=== PATIENT | male | born 1945 | race Hispanic/Latino ===

== ENCOUNTER 2024-07-05 17:33 | Emergency (ER) | payer OTHER ==
[~2024-07-05] VITALS: Ht 172.7 cm; Wt 85.7 kg
[2024-07-05 18:37] LABS: BASOPHILS # (AUTO) 0.05 K/uL (0.00-0.20); BASOPHILS % (AUTO) 0.7 % (0.0-5.0); EOSINOPHILS # (AUTO) 0.09 K/uL (0.00-0.70); EOSINOPHILS % (AUTO) 1.3 % (0.0-8.0); HEMATOCRIT 42.9 % (42-54); IMMATURE GRANULOCYTE ABSOLUTE 0.03 K/uL (0-1); LYMPHOCYTES # (AUTO) 1.9 K/uL (1.0-4.8); LYMPHOCYTES % (AUTO) 26.6 % (21.0-51.0); MEAN CORPUSCULAR HEMOGLOBIN 30.3 pg (27.0-33.0); MEAN CORPUSCULAR HGB CONC 33.6 g/dL (32.0-36.0); MEAN CORPUSCULAR VOLUME 90.3 fL (79-99); MONOCYTES # (AUTO) 0.5 K/uL (0.1-1.0); MONOCYTES % (AUTO) 7.4 % (3.0-13.0); NEUTROPHILS # (AUTO) 4.6 K/uL (1.8-7.7); NEUTROPHILS % (AUTO) 63.6 % (40.0-77.0); PLATELET COUNT (AUTO) 202 K/uL (130-400); RED BLOOD CELL COUNT(AUTO) 4.75 MIL/uL (4.50-6.20); RED CELL DISTRIBUTION WIDTH 12.3 % (11.0-15.5); WHITE BLOOD COUNT (AUTO) 7.2 K/uL (4.8-10.8)
[2024-07-05 18:47] LABS: CREATININE 1.1 mg/dL (0.5-1.3); POTASSIUM 4.4 mmol/L (3.5-5.1)
[2024-07-05 19:05] LABS: APPEARANCE,URINE CLEAR (CLEAR); BILIRUBIN,URINE NEGATIVE (NEGATIVE); COLOR,URINE COLORLESS (YELLOW); GLUCOSE, URINE (UA) NEGATIVE (NEGATIVE); KETONES,URINE NEGATIVE (NEGATIVE); LEUKOCYTE ESTERASE ,URINE NEGATIVE Leu/uL (NEGATIVE); NITRATE,URINE NEGATIVE (NEGATIVE); OCCULT BLOOD,URINE NEGATIVE (NEGATIVE); PROTEIN,URINE NEGATIVE (NEGATIVE); UROBILINOGEN,URINE 0.2 mg/dL (0.2-1.0)
[2024-07-05 19:06] LABS: ADD UA MICROSCOPIC YES
[2024-07-05 19:07] LABS: RBC,URINE 0-1 /HPF (0-1); WBC,URINE 0-1 /HPF (0-1)
[2024-07-05 19:26] VITALS: BP 116/65; PULSE 49; RESP 18; TEMP 97.5; O2SAT 98
== END 2024-07-05 19:32 | disposition home or self-care (01) ==
LOC: EDBD 17:33 → EDH 17:33
DX: E11.649 Type 2 diabetes mellitus with hypoglycemia without coma (principal); E78.00 Pure hypercholesterolemia, unspecified; F41.9 Anxiety disorder, unspecified; I10 Essential (primary) hypertension; E87.8 Other disorders of electrolyte and fluid balance, not elsewhere classified; E87.1 Hypo-osmolality and hyponatremia; Z88.0 Allergy status to penicillin; Z95.1 Presence of aortocoronary bypass graft
CPT/HCPCS: 36415; 80048; 81001; 82948; 85025

== ENCOUNTER → 2024-07-17 | Outpatient (CLI) | payer OTHER | END | disposition home or self-care (01) | LOC: LAB 08:38 | PROVIDERS: ATTEND Internal Medicine Cardiovascular Disease | DX: G72.0 Drug-induced myopathy (principal) | CPT/HCPCS: 36415; 82550 ==

== ENCOUNTER 2024-08-22 11:43 | Observation (INO) | payer OTHER ==
[~2024-08-22] VITALS: Ht 172.7 cm; Wt 90.7 kg
[2024-08-22 12:13] LABS: BASOPHILS # (AUTO) 0.07 K/uL (0.00-0.20); BASOPHILS % (AUTO) 1.3 % (0.0-5.0); EOSINOPHILS # (AUTO) 0.39 K/uL (0.00-0.70); EOSINOPHILS % (AUTO) 7.1 % (0.0-8.0); HEMATOCRIT 44.5 % (42-54); IMMATURE GRANULOCYTE ABSOLUTE 0.03 K/uL (0-1); LYMPHOCYTES # (AUTO) 1.9 K/uL (1.0-4.8); LYMPHOCYTES % (AUTO) 34.8 % (21.0-51.0); MEAN CORPUSCULAR HEMOGLOBIN 29.8 pg (27.0-33.0); MEAN CORPUSCULAR HGB CONC 32.6 g/dL (32.0-36.0); MEAN CORPUSCULAR VOLUME 91.4 fL (79-99); MONOCYTES # (AUTO) 0.5 K/uL (0.1-1.0); MONOCYTES % (AUTO) 8.5 % (3.0-13.0); NEUTROPHILS # (AUTO) 2.6 K/uL (1.8-7.7); NEUTROPHILS % (AUTO) 47.8 % (40.0-77.0); PLATELET COUNT (AUTO) 172 K/uL (130-400); RED BLOOD CELL COUNT(AUTO) 4.87 MIL/uL (4.50-6.20); RED CELL DISTRIBUTION WIDTH 12.9 % (11.0-15.5); WHITE BLOOD COUNT (AUTO) 5.5 K/uL (4.8-10.8)
--- NOTE | 2024-08-22 12:21 | EKG ---
Test Date: 2024-08-22 Test Time: 12:20:39 Pat Name: JEYSON TOVAR Department: ED Room: Gender: M Category Director: [id number] : 1945 Requested By: ALEXA HUERTAS Order Number: [id number] Reading MD: Con Park Measurements Intervals [place] Rate: 55 P: 25 AL: 176 QRS: -63 QRSD: 161 T: 27 QT: 436 QTc: 418 Interpretive Statements Sinus rhythm RBBB and LAFB No previous ECG available for comparison Electronically Signed On 08-22-2024 14:32:53 SOCIAL SERVICE COORDINATOR by Con Park Please click the below link to view image of tracing.
[2024-08-22 12:25] LABS: CREATININE 1.1 mg/dL (0.5-1.3); INR 0.98 (0.85-1.15); POTASSIUM 4.3 mmol/L (3.5-5.1); PROTHROMBIN TIME 10.6 SEC (9.6-11.6)
[2024-08-22 12:26] LABS: PARTIAL THROMBOPLASTIN TIME 26.7 SEC (26.3-35.5)
[2024-08-22] MEDS: PANTOPrazole 40 MG/VIAL IVP ONE (12:30)
[2024-08-22] MEDS: CEFTRIAXONE 2GM VIAL IVPB ONE (12:30)
[2024-08-22 12:31] LABS: ALBUMIN 3.7 g/dL (3.5-5.0); BILIRUBIN,DIRECT 0.1 mg/dL (0.0-0.3); BILIRUBIN,TOTAL 0.5 mg/dL (0.2-1.0); TOTAL PROTEIN, SERUM 7.8 g/dL (6.0-8.3)
--- NOTE | 2024-08-22 12:32 | ERN ---
ED Note History of Present Illness Stated Complaint: RECTAL BLEED Chief Complaint: Rectal Bleed Dictation: 79-year-old male presents to the ED for evaluation of rectal bleed onset onset 2 days ago. Patient is reporting abdominal pain and dark stools, but denies any other associated symptoms at this time. Patient reports history of HTN, dm and remote CABG. Patient is currently taking aspirin. Allergies: Coded Allergies: Penicillins (Unverified Allergy, Unknown, 07/05/24) Past Medical History Past Medical History: Diabetes-Type II, High Cholesterol, Heart Disease, Hypertension Additional Past Medical Hx: BPH Surgical History: None Review of System Dictation Constitutional: Negative for fever,chills, and weight loss Eyes: Negative for injury, pain,redness, and discharge ENT: Negative for injury,pain or swelling Cardiovascular: Negative for chest pain, palpitations, and edema Respiratory: Negative for shortness of breath, cough, and wheezing, Abdomen/GI: Positive for abdominal pain, rectal bleed negative for nausea, vomiting, diarrhea, and constipation Back: Negative for injury and pain : Negative for injury, bleeding and discharge MS/Extremity: Negative for injury and deformity Skin: Negative for rash, and discoloration Neuro: Negative for headache, weakness, numbness, tingling, and seizure Psych: Negative for suicide ideation, homicidal ideation, and hallucinations Initial Vital Sign VS Vital Signs Date Time Temp Pulse Resp B/P (MAP) Pulse Ox O2 Delivery O2 Flow Rate FiO2 08/22/24 11:47 97.2 56 18 155/67 98 Room Air* 0 21 Physical Exam Dictation General: awake, alert, NAD Head/Face: Normocephalic, atraumatic Eyes: PERRL, EOMI, vision at baseline ENT: oral cavity clear, TMs clear, no signs of infection Neck: Trachea midline, supple, no nuchal rigidity Cardiovascular: RRR, normal S1/S2, No MRGs, no JVD Respiratory: CTAB, no respiratory distress, No rales or wheezes Abdomen: Soft, mild periumbilical tenderness, non-distended, normal bowel sounds, no guarding or rebound. Skin: Warm, dry, normal turgor, no rash MS/Extremity: Pulses equal, no cyanosis, neurovascular intact, FROM Neuro: COAx4, GCS 15, strength 5/5, CN 2-12 intact, normal cerebellar exam, normal gait, Psych: Normal behavior, mood, and affect normal Results (Laboratory/Radiology) Laboratory/Radiology Laboratory Tests Test 08/22/24 12:06 White Blood Count 5.5 K/uL (4.8-10.8) Red Blood Count 4.87 MIL/uL (4.50-6.20) Hemoglobin 14.5 g/dL (14.0-18.0) Hematocrit 44.5 % (42-54) Mean Corpuscular Volume 91.4 fL (79-99) Mean Corpuscular Hemoglobin 29.8 pg (27.0-33.0) Mean Corpuscular Hemoglobin Concent 32.6 g/dL (32.0-36.0) Red Cell Distribution Width 12.9 % (11.0-15.5) Platelet Count 172 K/uL (130-400) Mean Platelet Volume 10.2 fL (7.5-10.5) Immature Granulocyte % (Auto) 0.5 % (0-1) Neutrophils (%) (Auto) 47.8 % (40.0-77.0) Lymphocytes (%) (Auto) 34.8 % (21.0-51.0) Monocytes (%) (Auto) 8.5 % (3.0-13.0) Eosinophils (%) (Auto) 7.1 % (0.0-8.0) Basophils (%) (Auto) 1.3 % (0.0-5.0) Neutrophils # (Auto) 2.6 K/uL (1.8-7.7) Lymphocytes # (Auto) 1.9 K/uL (1.0-4.8) Monocytes # (Auto) 0.5 K/uL (0.1-1.0) Eosinophils # (Auto) 0.39 K/uL (0.00-0.70) Basophils # (Auto) 0.07 K/uL (0.00-0.20) Absolute Immature Granulocyte (auto 0.03 K/uL (0-1) Nucleated Red Blood Cells 0.0 % (0.0-0.19) Prothrombin Time 10.6 SEC (9.6-11.6) Prothromb Time International Ratio 0.98 (0.85-1.15) Activated Partial Thromboplast Time 26.7 SEC (26.3-35.5) Sodium Level 133 mmol/L (136-145) L Potassium Level 4.3 mmol/L (3.5-5.1) Chloride Level 98 mmol/L (101-111) L Carbon Dioxide Level 30 mmol/L (21-32) Blood Urea Nitrogen 11 mg/dL (7-18) Creatinine 1.1 mg/dL (0.5-1.3) Glomerular Filtration Rate Calc 69 mL/min (>90) Random Glucose 110 mg/dL (70-105) H Lactic Acid Level 2.2 mmol/L (0.8-2.5) Total Calcium 10.4 mg/dL (8.5-10.1) H Total Bilirubin 0.5 mg/dL (0.2-1.0) Direct Bilirubin 0.1 mg/dL (0.0-0.3) Aspartate Amino Transf (AST/SGOT) 20 U/L (10-37) Alanine Aminotransferase (ALT/SGPT) 25 U/L (12-78) Alkaline Phosphatase 136 U/L (50-136) Troponin I High Sensitivity 12 ng/L (4-75) Total Protein 7.8 g/dL (6.0-8.3) Albumin 3.7 g/dL (3.5-5.0) Labs Reviewed?: Yes CT Scan Comment: REASON: mid abdominal pain ORDERING PHYSICIAN: ALEXA HUERTAS MD PROCEDURE: ABD PELVWO - CT ABD/PEL WO CON RENAL/APPY CT ABD/PEL WO CON RENAL/APPY HISTORY: Abdominal pain COMPARISON: None TECHNIQUE: Multiple sequential axial images of the abdomen and pelvis were obtained from the dome of the diaphragm through symphysis pubis. Patient was not given contrast through intravenous route. Oral contrast was not given. FINDINGS: Tiny bilateral pleural effusions are seen. There are interstitial fibrosis. There is no evidence of parenchymal disease or pulmonary nodule of the visualized lower lungs. Degenerative changes of the thoracolumbar spine are present. The heart is not enlarged. Coronary arterial calcifications are seen.. A small hiatal hernia is seen. Liver is enlarged measuring 17 cm The liver, spleen, adrenal glands and pancreas are unremarkable. There is no evidence of hydronephrosis bilaterally. No evidence of renal stone is seen. Fecal material is seen in the colon. There are normal size retroperitoneal and mesenteric lymph nodes. No ascites is seen. Atherosclerotic changes are present. There is infrarenal abdominal aortic aneurysm measuring 3 x 2.9 cm. There is diverticulosis. No CT evidence of acute appendicitis is seen. Pelvic sidewalls are symmetric bilaterally. Bladder is well distended without wall thickening. Prostate gland is enlarged measuring 5.2 x 7.5 cm. IMPRESSION: 1. Diverticulosis. Fecal material in the colon. Infrarenal abdominal aortic aneurysm measuring [address] was performed with one or more following dose reduction techniques: automated exposure control, adjustment of the mA and kv according to patient's size, or use of a iterative reconstruction technique. ED Course ED Course Orders Procedure Category Date Status Time 12 Lead Ekg Tracing- EKG 08/22/24 Complete Technical 11:58 Basic Metabolic Panel LAB 08/22/24 Complete 11:58 Cbc With Differential LAB 08/22/24 Complete 11:58 Hepatic Function Panel LAB 08/22/24 Complete 11:58 Lactic Acid LAB 08/22/24 Complete 11:58 Troponin I High LAB 08/22/24 Complete Sensitivity 11:58 Pt And Ptt LAB 08/22/24 Complete 11:58 Ct Abd/Pel Wo Con CT 08/22/24 Resulted Renal/Appy 12:13 Ceftriaxone 2gm Vial PHA 08/22/24 Complete (Rocephin 2gm Inj) 12:30 Pantoprazole 40mg Inj PHA 08/22/24 Complete (Protonix 40mg Inj 12:30 Blood Cult JARED 08/22/24 In Process 12:14 Current Medications Medications (Trade) Dose Ordered Sig/Jo Route PRN Reason Start Time Stop Time Status Last Admin Dose Admin Ceftriaxone Sodium (Rocephin 2gm Inj) 2 gm ONCE ONCE IVPB 08/22/24 12:30 08/22/24 12:31 DC 08/22/24 12:30 Pantoprazole Sodium (PROTonix 40MG INJ) 80 mg ONCE ONCE IVP 08/22/24 12:30 08/22/24 12:31 DC 08/22/24 12:30 Vital Signs Date Time Temp Pulse Resp B/P (MAP) Pulse Ox O2 Delivery O2 Flow Rate FiO2 08/22/24 11:47 97.2 56 18 155/67 98 Room Air 0 08/22/24 11:47 97.2 56 18 155/67 98 Room Air* 0 21 Medical Decision Making MDM MDM: Differential diagnosis: Abdominal pain, GI bleed, lower GI bleed 1404- Dr. Sosa, Midlevel consult, accepts patient for admission Previous outside records reviewed: Old ER visits. Need for hospitalization: Patient does meet criteria for hospitalization. Need for emergency major/minor surgery: No Patient's prior external medical records from other ER visits were reviewed by me as indicated. Prior testing and results from previous visits were reviewed. Prior tests were taken into account with medical decision making and resource utilization, independent historian/historians were used to obtain complete medical history. I independently interpreted the test that were performed, results were reviewed by me and considered findings on radiology if ordered. Medical management and examination interpretation discussions were had by me with other qualified healthcare professionals as indicated for the patient's care. DX & DISP Disposition: Inpatient Decision to Admit Date: Aug 22, 2024 Decision to Admit Time: 14:05 Departure Impression: Primary Impression: Lower GI bleed Condition: Stable Referrals: LISA CACERES MD (PCP) I have reviewed, & agreed with my scribe's, documentation. (Entered by Nilesh Lester, acting as a scribe for Dr. Huertas) I personally scribed for ALEXA HUERTAS MD ([email or web address]) on 08/22/24 at 12:32. Electronically submitted by Nilesh Lester ([email or web address]). I personally scribed for ALEXA HUERTAS MD ([email or web address]) on 08/22/24 at 14:06. Electronically submitted by Nilesh Lester ([email or web address]). ALEXA HUERTAS MD Aug 22, 2024 12:32
--- NOTE | 2024-08-22 13:04 | HMCIMG ---
CT ABD/PEL WO CON RENAL/APPY HISTORY: Abdominal pain COMPARISON: None TECHNIQUE: Multiple sequential axial images of the abdomen and pelvis were obtained from the dome of the diaphragm through symphysis pubis. Patient was not given contrast through intravenous route. Oral contrast was not given. FINDINGS: Tiny bilateral pleural effusions are seen. There are interstitial fibrosis. There is no evidence of parenchymal disease or pulmonary nodule of the visualized lower lungs. Degenerative changes of the thoracolumbar spine are present. The heart is not enlarged. Coronary arterial calcifications are seen.. A small hiatal hernia is seen. Liver is enlarged measuring 17 cm The liver, spleen, adrenal glands and pancreas are unremarkable. There is no evidence of hydronephrosis bilaterally. No evidence of renal stone is seen. Fecal material is seen in the colon. There are normal size retroperitoneal and mesenteric lymph nodes. No ascites is seen. Atherosclerotic changes are present. There is infrarenal abdominal aortic aneurysm measuring 3 x 2.9 cm. There is diverticulosis. No CT evidence of acute appendicitis is seen. Pelvic sidewalls are symmetric bilaterally. Bladder is well distended without wall thickening. Prostate gland is enlarged measuring 5.2 x 7.5 cm. IMPRESSION: 1. Diverticulosis. Fecal material in the colon. Infrarenal abdominal aortic aneurysm measuring [address] was performed with one or more following dose reduction techniques: automated exposure control, adjustment of the mA and kv according to patient's size, or use of a iterative reconstruction technique.
[2024-08-22] MEDS ORDERED: DiphenhydrAMINE HCL 50 MG/ML VIAL IV PRN (15:00)
[2024-08-22] MEDS ORDERED: doCUSate SODIUM 100 MG CAP PO PRN (15:00)
[2024-08-22] MEDS ORDERED: NITROGLYCERIN 0.4 MG SL TAB SL PRN (15:00)
[2024-08-22] MEDS ORDERED: DiphenhydrAMINE HCL 25 MG CAPSULE PO PRN (15:00)
[2024-08-22] MEDS ORDERED: acetaMINOPHEN 325 MG TAB PO PRN ×2 (15:00)
[2024-08-22] MEDS ORDERED: MAG/ALUM/SIMETH 30 ML UDCUP PO PRN (15:00)
[2024-08-22] MEDS ORDERED: ARTIFICAL TEARS SOL 15 ML OP PRN (15:00)
[2024-08-22] MEDS ORDERED: LOPERAMIDE HCL 2 MG CAP PO PRN (15:00)
[2024-08-22] MEDS ORDERED: LIDOCAINE HCL 2% VISCOUS 30 ML, MAG/ALUM/SIMETH 30ML 30 ML, DICYCLOMINE HCL 20 MG PO PRN (15:00)
[2024-08-22] MEDS ORDERED: BENZOCAINE/MENTH/CETYLPYRD CL 1 EACH LOZENGE MM PRN (15:00)
[2024-08-22] MEDS ORDERED: ondanSETRON 4MG INJ IV PRN (15:00)
[2024-08-22] MEDS ORDERED: LACTULOSE 20 GM/30 ML UDCUP PO PRN (15:00)
[2024-08-22] MEDS ORDERED: polyETHYLene GLYCol 3350 17 GM POWD.PACK PO PRN (15:00)
[2024-08-22] MEDS ORDERED: guaiFENesin-DM 200/20MG 10ML PO PRN (15:00)
[2024-08-22 16:17] VITALS: O2SAT 98
[2024-08-22] MEDS: INSULIN LISpro 100 UNIT/ML 3ML SQ SCH (16:30)
[2024-08-22 16:43] VITALS: BP 133/73; PULSE 98; RESP 19; TEMP 97.8
--- NOTE | 2024-08-22 17:50 | HP ---
[facility] HISTORY & PHYSICAL Date Patient Seen: Aug 22, 2024 Time of Visit: 17:49 Supervising Physician: [Dr. Sosa] Primary Care Physician: [Dr. Gadiel Abraham] Outpatient Specialists: [ ] Inpatient Consults: [Dr. Martinez] PROBLEM LIST: Suspected upper GI bleed, POA Dyspepsia with bloating and abdominal discomfort Diverticulosis without diverticulitis Infrarenal abdominal aortic aneurysm Constipation CAD s/p remote CABG, on aspirin at home Diabetes mellitus Hyperlipidemia Hypertension Benign prostate hyperplasia HPI: [This is a 79-year-old male with a history diabetes, hypertension, hyperlipidemia, CAD s/p remote CABG on aspirin therapy and a home presents to the ED for evaluation of possible blood in stool. Per patient he started epigastric pain about 3-4 days ago for which he took Pepto-Bismol. States after taking Pepto-Bismol he had a dark stool but no bright red blood. Patient denies any prior episodes. He is not on any anticoagulation but does take a baby aspirin daily. He reports having a colonoscopy well over 10 years ago whi ch was self-reported as normal, did not have a repeat as recommended. Denies any prior endoscopic procedure. Denies any known past medical history of stomach ulcers. No known history of liver disease. Patient's last bowel movement was this morning which he reported as normal. His labs on admission were unremarkable with a hemoglobin of 14.5, platelets of 172 and INR of 0.98. His CT of the abdomen did reveal diverticulosis with fecal material noted in: As well as an infrarenal abdominal aortic aneurysm measuring 3 x 2.9 cm.] PAST MEDICAL HX: see above PAST SURGICAL HX: noncontributory SOCIAL HISTORY: No tobacco, ETOH, or illicit drug use Coded Allergies: Penicillins (Unverified Allergy, Unknown, 07/05/24) REVIEW OF SYSTEMS: 12 point ROS reviewed with patient. Pertinent positives mentioned above. Otherwise negative. PHYSICAL EXAM: GENERAL: alert, weak, awake oriented x 3 HEENT: EOMI, Sclera non icteric, moist mucosa NECK: Supple, no JVD, trachea midline LUNGS: Clear breath sounds bilaterally. No wheezes HEART: Regular rate and rhythm. Normal S1 and S2, without murmurs ABD: Abdomen soft, nontender. Bowel sounds present EXT: No clubbing cyanosis or edema NEURO: Alert and oriented to person, follows commands Vital Signs (last 8hr) Date Time Temp Pulse Resp B/P (MAP) Pulse Ox O2 Delivery O2 Flow Rate FiO2 08/22/24 16:43 97.9 98 19 133/73 98 Room Air 08/22/24 16:17 98 Room Air* 0 21 08/22/24 14:14 97.5 55 16 114/57 98 Room Air* 0 21 08/22/24 11:47 97.2 56 18 155/67 98 Room Air 0 08/22/24 11:47 97.2 56 18 155/67 98 Room Air* 0 21 LABS: Hematology Labs: Test 08/22/24 12:06 Range/Units White Blood Count 5.5 4.8-10.8 K/uL Red Blood Count 4.87 4.50-6.20 MIL/uL Hemoglobin 14.5 14.0-18.0 g/dL Hematocrit 44.5 42-54 % Mean Corpuscular Volume 91.4 79-99 fL Mean Corpuscular Hemoglobin 29.8 27.0-33.0 pg Mean Corpuscular Hemoglobin Concent 32.6 32.0-36.0 g/dL Red Cell Distribution Width 12.9 11.0-15.5 % Platelet Count 172 130-400 K/uL Mean Platelet Volume 10.2 7.5-10.5 fL Immature Granulocyte % (Auto) 0.5 0-1 % Neutrophils (%) (Auto) 47.8 40.0-77.0 % Lymphocytes (%) (Auto) 34.8 21.0-51.0 % Monocytes (%) (Auto) 8.5 3.0-13.0 % Eosinophils (%) (Auto) 7.1 0.0-8.0 % Basophils (%) (Auto) 1.3 0.0-5.0 % Neutrophils # (Auto) 2.6 1.8-7.7 K/uL Lymphocytes # (Auto) 1.9 1.0-4.8 K/uL Monocytes # (Auto) 0.5 0.1-1.0 K/uL Eosinophils # (Auto) 0.39 0.00-0.70 K/uL Basophils # (Auto) 0.07 0.00-0.20 K/uL Absolute Immature Granulocyte (auto 0.03 0-1 K/uL Nucleated Red Blood Cells 0.0 0.0-0.19 % Chemistry Labs: Test 08/22/24 17:33 08/22/24 12:06 Range/Units Whole Blood Glucose 105 70-110 MG/DL Sodium Level 133 L 136-145 mmol/L Potassium Level 4.3 3.5-5.1 mmol/L Chloride Level 98 L 101-111 mmol/L Carbon Dioxide Level 30 21-32 mmol/L Blood Urea Nitrogen 11 7-18 mg/dL Creatinine 1.1 0.5-1.3 mg/dL Glomerular Filtration Rate Calc 69 >90 mL/min Random Glucose 110 H 70-105 mg/dL Lactic Acid Level 2.2 0.8-2.5 mmol/L Total Calcium 10.4 H 8.5-10.1 mg/dL Total Bilirubin 0.5 0.2-1.0 mg/dL Direct Bilirubin 0.1 0.0-0.3 mg/dL Aspartate Amino Transf (AST/SGOT) 20 10-37 U/L Alanine Aminotransferase (ALT/SGPT) 25 12-78 U/L Alkaline Phosphatase 136 50-136 U/L Troponin I High Sensitivity 12 4-75 ng/L Total Protein 7.8 6.0-8.3 g/dL Albumin 3.7 3.5-5.0 g/dL Coagulation Labs: Test 08/22/24 12:06 Range/Units Prothrombin Time 10.6 9.6-11.6 SEC Prothromb Time International Ratio 0.98 0.85-1.15 Activated Partial Thromboplast Time 26.7 26.3-35.5 SEC DIAGNOSTICS / RADIOLOGY RESULTS: CT ABD/PEL WO CON RENAL/APPY HISTORY: Abdominal pain COMPARISON: None TECHNIQUE: Multiple sequential axial images of the abdomen and pelvis were obtained from the dome of the diaphragm through symphysis pubis. Patient was not given contrast through intravenous route. Oral contrast was not given. FINDINGS: Tiny bilateral pleural effusions are seen. There are interstitial fibrosis. There is no evidence of parenchymal disease or pulmonary nodule of the visualized lower lungs. Degenerative changes of the thoracolumbar spine are present. The heart is not enlarged. Coronary arterial calcifications are seen.. A small hiatal hernia is seen. Liver is enlarged measuring 17 cm The liver, spleen, adrenal glands and pancreas are unremarkable. There is no evidence of hydronephrosis bilaterally. No evidence of renal stone is seen. Fecal material is seen in the colon. There are normal size retroperitoneal and mesenteric lymph nodes. No ascites is seen. Atherosclerotic changes are present. There is infrarenal abdominal aortic aneurysm measuring 3 x 2.9 cm. There is diverticulosis. No CT evidence of acute appendicitis is seen. Pelvic sidewalls are symmetric bilaterally. Bladder is well distended without wall thickening. Prostate gland is enlarged measuring 5.2 x 7.5 cm. IMPRESSION: 1. Diverticulosis. Fecal material in the colon. Infrarenal abdominal aortic aneurysm measuring 3 x 2.9 cm. PLAN Consult GI for evaluation and recommendation Protonix BID Monitor Hgb Hold aspirin pending resolution of symptoms NEURO: Minimize central acting medications as possible. Maintain fall precautions, adequate lighting during the day PULMONARY: Supplemental 02 as needed. Maintain aspiration precautions at all times CARDIOVASCULAR: Follow hemodynamics. Vital signs per facility protocol GI & NUTRITION: Continue with nutritional support. Continue stool softeners and laxatives as needed. KIDNEYS & ELECTROLYTES: Strict monitoring of intake, output and overall fluid balance. Avoid nephrotoxic medications to the extent possible. Medications to be dosed according to renal function. Monitor electrolytes and replace as needed ENDOCRINE: Maintain blood glucose between 100-180 at all times. Hypoglycemia protocol in place INFECTIOUS DISEASE: Trend temperature, WBC and procalcitonin level Follow cultures, deescalate antibiotics as soon as possible. Panculture if new onset fever ONCOLOGY/HEMATOLOGY/COAGULATION: Monitor for s/s of bleeding Monitor hemoglobin, coagulation studies as needed SKIN: Pressure ulcer prevention per facility protocol Specialty mattress ORTHO/REHAB: Continue PT/OT Prophylaxis: Continue GI and DVT prophylaxis Code Status: Full Resuscitation Disposition: TBD Other: Total patient care time exceeds 35 minutes excluding all procedures. LAILA LOZANO Aug 22, 2024 17:50
[2024-08-22] MEDS ORDERED: FINA5TAB41 PO (18:18)
[2024-08-22] MEDS ORDERED: ATOR40TA71 PO (18:18)
[2024-08-22] MEDS ORDERED: LOSA50TA64 PO (18:18)
[2024-08-22] MEDS ORDERED: PRAZ1CAP5 PO (18:18)
[2024-08-22] MEDS ORDERED: METO-391 PO (18:18)
[2024-08-22] MEDS ORDERED: GABA-529 PO (18:18)
[2024-08-22] MEDS ORDERED: CLON0.5T4 PO (18:18)
[2024-08-22 20:00] VITALS: BP 154/70; PULSE 50; RESP 20; TEMP 97.7
[2024-08-22 20:36] VITALS: O2SAT 100
[2024-08-22] MEDS: GABApentin 100 MG CAPSULE PO SCH (20:36)
[2024-08-22] MEDS: PANTOPrazole 40 MG/VIAL IVP SCH (20:36)
[2024-08-22] MEDS: PRAZOSIN HCL 1 MG PO SCH (20:45)
[2024-08-22] MEDS: clonazePAM 0.5 MG TABLET PO SCH (21:00)
[2024-08-22] MEDS ORDERED: FAMOTIDINE 20MG TAB PO SCH (21:00)
[2024-08-23] VITALS: BP 139/74; PULSE 47; RESP 16; TEMP 97.8
[2024-08-23 04:00] VITALS: BP 118/59; PULSE 57; RESP 18; TEMP 97.8
[2024-08-23 08:00] VITALS: O2SAT 98
[2024-08-23 08:14] VITALS: BP 120/62; PULSE 54; RESP 16; TEMP 98.1
[2024-08-23] MEDS: metOPROLol sucCINATE 50 MG TAB.SR.24H PO SCH (09:00)
[2024-08-23] MEDS ORDERED: LoSARTan 50 MG TABLET PO SCH ×2 (09:00→21:00)
[2024-08-23] MEDS: finaSTERide 5 MG TABLET PO SCH (09:18)
[2024-08-23] MEDS: GABApentin 100 MG CAPSULE PO SCH (09:18)
[2024-08-23] MEDS: atorVAStatin 40 MG TABLET PO SCH (09:18)
[2024-08-23 11:14] LABS: HEMATOCRIT 42.5 % (42-54); MEAN CORPUSCULAR HEMOGLOBIN 29.7 pg (27.0-33.0); MEAN CORPUSCULAR HGB CONC 32.9 g/dL (32.0-36.0); RED BLOOD CELL COUNT(AUTO) 4.72 MIL/uL (4.50-6.20); WHITE BLOOD COUNT (AUTO) 4.6 K/uL (4.8-10.8)
--- NOTE | 2024-08-23 11:27 | DS ---
[facility] DISCHARGE SUMMARY Date Patient Seen: Aug 23, 2024 Time of Visit: 11:26 Supervising Physician: [Dr. Sosa] Primary Care Physician: [Dr. Gadiel Abraham] Outpatient Specialists: [ ] Inpatient Consults: [Dr. Martinez] PROBLEM LIST: Suspected upper GI bleed, POA Dyspepsia with bloating and abdominal discomfort Diverticulosis without diverticulitis Infrarenal abdominal aortic aneurysm Constipation CAD s/p remote CABG, on aspirin at home Diabetes mellitus Hyperlipidemia Hypertension Benign prostate hyperplasia HOSPITAL COURSE: HPI (per admitting provider) This is a 79-year-old male with a history diabetes, hypertension, hyperlipidemia, CAD s/p remote CABG on aspirin therapy and a home presents to the ED for evaluation of possible blood in stool. Per patient he started epigastric pain about 3-4 days ago for which he took Pepto-Bismol. States after taking Pepto-Bismol he had a dark stool but no bright red blood. Patient denies any prior episodes. He is not on any anticoagulation but does take a baby aspirin daily. He reports having a colonoscopy well over 10 years ago which was self-reported as normal, did not have a repeat as recommended. Denies any prior endoscopic procedure. Denies any known past medical history of stomach ulcers. No known history of liver disease. Patient's last bowel movement was this morning which he reported as normal. His labs on admission were unremarkable with a hemoglobin of 14.5, platelets of 172 and INR of 0.98. His CT of the abdomen did reveal diverticulosis with fecal material noted in: As well as an infrarenal abdominal aortic aneurysm measuring 3 x 2.9 cm. Patient was monitored overnight for any bleeding. He did not have any hematocheezia or melena while admitted. Did report 3 normal bowel movements. Patient believes he drank more pepto bismol than directed as the bottle spilled into the cup he was pouring to and he drank it anyway. This could have explained the darker than normal stool. His Hgb remained at 14. Normal platelets and coagulation studies. He was advised to follow up outpatient with GI for further evaluation and recommendation. Follow up with cardiology outpatient for monitoring AAA and further recommendation. The patient was treated for the following problems: PROBLEM LIST: Suspected upper GI bleed, POA Dyspepsia with bloating and abdominal discomfort Diverticulosis without diverticulitis Infrarenal abdominal aortic aneurysm Constipation CAD s/p remote CABG, on aspirin at home Diabetes mellitus Hyperlipidemia Hypertension Benign prostate hyperplasia CHRONIC PROBLEMS: continue previous management per PCP unless otherwise julio c cated [employer] FINDINGS/RECOMMENDATIONS: [ N/A] PROCEDURES: N/A DISCHARGE MEDICATIONS: Continue all current medications as listed below. He may resume aspirin 81mg daily. Pt hemodynamically stable and afebrile at time of discharge. PCP notified of patients admission, hospital course and discharge. Continued Medications: Atorvastatin Calcium (Atorvastatin Calcium) 40 Mg Tablet 1 TAB PO DAILY Clonazepam (Clonazepam) 0.5 Mg Tablet 1 TAB PO DAILY Finasteride (Finasteride) 5 Mg Tablet 1 TAB PO DAILY Gabapentin (Gabapentin) 100 Mg Capsule 1 CAP PO TID Losartan Potassium (Losartan Potassium) 50 Mg Tablet 1 TAB PO DAILY Metoprolol Succinate (Metoprolol Succinate) 50 Mg Tab.er.24h 1 TAB PO DAILY Prazosin HCl (Prazosin HCl) 1 Mg Capsule 1 CAP PO HS PHYSICAL EXAM: GENERAL: alert, weak, awake oriented x 3, SUSAN exam deferred HEENT: EOMI, Sclera non icteric, moist mucosa NECK: Supple, no JVD, trachea midline LUNGS: Clear breath sounds bilaterally. No wheezes HEART: Regular rate and rhythm. Normal S1 and S2, without murmurs ABD: Abdomen soft, nontender. Bowel sounds present EXT: No clubbing cyanosis or edema NEURO: Alert and oriented to person, follows commands FOLLOW-UP: Follow-up with PCP in 2-3 days for reevaluation and repeat labs. Follow up outpatient with GI for further evaluation and recommendation. Follow up with ca rdiology outpatient for monitoring AAA and further recommendation. RECOMMENDATIONS: See Discharge Instructions This case was seen and discussed with my supervising physician. More than 30 minutes spent on discharge process, including evaluation of the patient, discussion with nursing staff, medication reconciliation and follow-up appointments LAILA LOZANO Aug 23, 2024 11:27
[2024-08-23 11:56] VITALS: BP 128/62; PULSE 50; RESP 19; TEMP 98.7
[2024-08-23] MEDS ORDERED: GABApentin 100 MG CAPSULE PO SCH (21:00)
== END 2024-08-23 12:30 | disposition home or self-care (01) ==
LOC: EDH 11:43 → EDHIP 14:48 → 3DH 16:29
PROVIDERS: ADMIT Internal Medicine Critical Care Medicine; ATTEND Internal Medicine Critical Care Medicine
DX: K57.30 Diverticulosis of large intestine without perforation or abscess without bleeding (principal); I71.43 Infrarenal abdominal aortic aneurysm, without rupture; N40.0 Benign prostatic hyperplasia without lower urinary tract symptoms; K59.00 Constipation, unspecified; I25.10 Atherosclerotic heart disease of native coronary artery without angina pectoris; E11.9 Type 2 diabetes mellitus without complications; E78.5 Hyperlipidemia, unspecified; I11.9 Hypertensive heart disease without heart failure; R10.84 Generalized abdominal pain; R14.0 Abdominal distension (gaseous); Z79.82 Long term (current) use of aspirin; Z88.0 Allergy status to penicillin; Z95.1 Presence of aortocoronary bypass graft; Z79.899 Other long term (current) drug therapy
CPT/HCPCS: 96376 ×2; 96365; 96375; 99285; 80076; 84484; 80048; 85025; 85610; 85730; 87040 ×2; 82948 ×4; 83605; 36415 ×2; 74176; 93005; 85027; G0378 ×22; J0696; J2470 ×3

== ENCOUNTER → 2024-10-05 | Outpatient (CLI) | payer OTHER ==
[~2024-10-05] MED LIST: ATOR40TA71 PO; CLON0.5T4 PO; FINA5TAB41 PO; GABA-529 PO; LOSA50TA64 PO; METO-391 PO; PRAZ1CAP5 PO
[2024-10-05 12:53] LABS: ALBUMIN 3.7 g/dL (3.5-5.0); BILIRUBIN,DIRECT 0.1 mg/dL (0.0-0.3); BILIRUBIN,TOTAL 0.8 mg/dL (0.2-1.0); TOTAL PROTEIN, SERUM 7.6 g/dL (6.0-8.3)
== END | disposition home or self-care (01) ==
LOC: LAB 08:34
PROVIDERS: ATTEND Internal Medicine Cardiovascular Disease
DX: I25.10 Atherosclerotic heart disease of native coronary artery without angina pectoris (principal); E78.5 Hyperlipidemia, unspecified; Z87.891 Personal history of nicotine dependence
CPT/HCPCS: 36415; 80061; 80076; 82550

== ENCOUNTER → 2024-11-20 | Outpatient (CLI) | payer OTHER ==
[2024-11-20 12:51] LABS: CHOLESTEROL 120 mg/dL (<200); HDL CHOLESTEROL 48 mg/dL (29-71); LDL DIRECT 65 mg/dL (0-99); TRIGLYCERIDES 123 mg/dL (30-200)
[2024-11-20 12:59] LABS: CREATINE KINASE, TOTAL 976 U/L (21-232)
== END | disposition home or self-care (01) ==
LOC: LAB 08:05
PROVIDERS: ATTEND Internal Medicine Cardiovascular Disease
DX: I25.10 Atherosclerotic heart disease of native coronary artery without angina pectoris (principal); M62.82 Rhabdomyolysis; E78.5 Hyperlipidemia, unspecified
CPT/HCPCS: 36415; 80061; 82550

== ENCOUNTER 2025-07-06 07:36 | Observation (INO) | payer OTHER ==
[2025-07-02 09:15] LABS: IMMATURE GRANULOCYTE ABSOLUTE 0.03 K/uL (0-1); NUCLEATED RED BLOOD CELLS 0.0 % (0.0-0.19); PLATELET COUNT (AUTO) 193 K/uL (130-400); RED BLOOD CELL COUNT(AUTO) 5.01 MIL/uL (4.50-6.20); RED CELL DISTRIBUTION WIDTH 12.5 % (11.0-15.5); WHITE BLOOD COUNT (AUTO) 5.5 K/uL (4.8-10.8)
[2025-07-02 09:20] VITALS: BP 140/68; PULSE 63; RESP 18; TEMP 98.2
[2025-07-02 09:21] LABS: CREATININE 1.1 mg/dL (0.5-1.3); GLOMERULAR FILTR. RATE CALC 69.0 mL/min (>90); GLUCOSE,RANDOM 134.0 mg/dL (70-105); SODIUM SERUM 137.0 mmol/L (136-145); UREA NITROGEN, BLOOD 18.0 mg/dL (7-18)
[2025-07-02 10:11] LABS: INR 1.0 (0.85-1.15)
[~2025-07-06] VITALS: Ht 172.7 cm; Wt 91.1 kg
[2025-07-06] VITALS (27 sets, daily range): BP systolic 101–161; BP diastolic 50–78; PULSE 50–59; RESP 12–18; TEMP 96.9–97.9; O2SAT 99
[~2025-07-06 07:36] MED LIST changes: +ACET-2743 PO; +ASPI-1443 PO; -ATOR40TA71 PO; +CETI10TA57 PO; +ESOM40CA66 PO; -GABA-529 PO; +NITR0.4T50 SL; +SUCR1TAB2 PO
[2025-07-06 08:32] LABS: APPEARANCE,URINE CLEAR (CLEAR); GLUCOSE, URINE (UA) NEGATIVE (NEGATIVE); LEUKOCYTE ESTERASE ,URINE NEGATIVE Leu/uL (NEGATIVE); NITRATE,URINE NEGATIVE (NEGATIVE); OCCULT BLOOD,URINE NEGATIVE (NEGATIVE)
[2025-07-06 08:34] LABS: ADD UA MICROSCOPIC NO
[2025-07-06] MEDS: CLINDAMYCIN IVPB 900MG/50ML 50 ML IV ONE (09:10)
[2025-07-06] MEDS: 0.9%NACL 1000ML 1,000 ML IV ONE (09:10)
[2025-07-06] MEDS ORDERED: VANCOMYCIN 1G/250ML KIT 250 ML IV ONE (09:13)
[2025-07-06] MEDS ORDERED: BACITRACIN 28.4 GM OINT TP ONE (09:13)
[2025-07-06] MEDS ORDERED: THROMBIN-JMI 20000 UNIT KIT TP ONE (09:14)
[2025-07-06] MEDS ORDERED: LIDOCAINE 1%-EPI 1:100,000 20 ML VIAL ONE (09:14)
[2025-07-06] MEDS ORDERED: MIDAZOLAM HCL 1 MG/ML 2ML VIAL ONE (09:24)
[2025-07-06] MEDS ORDERED: TRANEXAMIC ACID 1000MG/10ML ONE (09:28)
[2025-07-06] MEDS: VANCOMYCIN 1G VIAL TP ONE (10:32)
[2025-07-06] MEDS ORDERED: NEOSTIGMINE METHYLSULFATE 1MG/ML IV ONE (11:19)
[2025-07-06] MEDS ORDERED: GLYCOPYRROLATE 0.2 MG/ML 5 ML VIAL ONE (11:19)
[2025-07-06] MEDS ORDERED: NITROGLYCERIN 0.4 MG SL TAB SL PRN (14:30)
[2025-07-06] MEDS: SUCRALFATE 1 GM TABLET PO SCH (17:32)
[2025-07-06] MEDS: ASPIRIN 81 MG EC TAB PO SCH (20:01)
[2025-07-06] MEDS: PRAZOSIN HCL 1 MG PO SCH (20:02)
--- NOTE | 2025-07-06 22:13 | NUR ---
CONSTIPATION PATIENT ADVISED HAS NOT BEEN ABLE TO HAVE A BOWEL MOVEMENT TODAY. I ADVISED PATIENT THAT HE RECENTLY HAD SURGERY AND MAY TAKE SOME TIME FOR HIS BOWELS TO START MOVING AGAIN. PATIENT VOICED ABDOMINAL PAIN AT THIS TIME AND STATES IS DUE TO CONSTIPATION. CONTACTED DR. GONZALEZ AT THIS TIME FOR A LAXATIVE ORDER. PER DR. GONZALEZ: LACTULOSE 30CC PO EVERY 6 HOURS UNTIL BOWEL MOVEMENT. ORDERS NOTED AND CARRIED OUT.
[2025-07-06] MEDS: LACTULOSE 20 GM/30 ML UDCUP PO SCH (23:15)
--- NOTE | 2025-07-06 23:15 | NUR ---
LACTULOSE REFUSAL PATIENT REFUSED LACTULOSE AT THIS TIME STATING "MY STOMACH PAIN HAS DIMINISHED". PATIENT REQUESTED TO WAIT UNTIL 0600 DOSE.
[2025-07-07 03:47] VITALS: BP 117/56; PULSE 61; RESP 18; TEMP 97.5
--- NOTE | 2025-07-07 05:09 | OP ---
DATE OF PROCEDURE: 07/06/2025 The patient is a 79-year-old male patient with ____ low back pain. No improvement after physical therapy, pain management. I agree and consent further for the proposed surgery. PREOPERATIVE DIAGNOSIS: Lumbar spondylosis with neurogenic claudication L4-L5. POSTOPERATIVE DIAGNOSIS: Lumbar spondylosis with neurogenic claudication L4-L5. PROCEDURE: Decompressive laminectomy L4-L5. SURGEON: Kurtis Morrell M.D. ESTIMATED BLOOD LOSS: Less than 100 mL. COMPLICATIONS: No intraoperative complication. DESCRIPTION OF PROCEDURE: The patient tolerated procedure well. The patient was brought to the operating room. Adequate general endotracheal anesthesia was achieved. IV antibiotics were given. Therefore, the patient was positioned in prone before DVT examination and the needle for the EMG. SSEP were secured. Once in the prone position, the back was extensively prepped and draped in the usual sterile fashion. I made an incision done with a blade. Bipolar coagulation was done. Then we continued dissection, identifying the tender left L4 and L5. Once adequate appropriate identification, we proceeded to use the drill to complete the hemilaminotomy at the right as well on the left side. Then I used the operative curette and then multiple sites located on to decompress the thecal sac and a root of L4 and L5 bilaterally, which were probed with the Olivecrona. Hemostasis was achieved with bipolar coagulation, a small amount of Gelfoam later on removed as hemostasis was achieved and irrigation was done. Marcaine to the paraspinal muscle. The wound was sprinkled with antibiotic powder and it was closed by anatomical layer with Vicryl 1, Vicryl 2 in layers and then stapled for skin. The patient tolerated procedure well. There were no complications. Family members were addressed. Sponge and needle counts and equipment count were reported complete at the end of the procedure. TID: [id number] RECEIPT: [id number]
[2025-07-07 07:49] VITALS: BP 123/67; PULSE 62; RESP 16; TEMP 97.5
[2025-07-07 08:00] VITALS: O2SAT 99
--- NOTE | 2025-07-07 08:43 | NUR ---
DCP: HOME Sw met with pt and his common law Staci Bermeo [phone]. Pt reports they live in mobile home with 4 steps and rail. Pt reports he is able to complete ADLS on his own, has 2 canes and no HH or HD. PCP is Christopher Abraham and uses [facility] for rx needs. Discussed dc needs and will return home at sd. Addendum: 07/07/25 at 0921 by ANITA OLIVERA SS Amended: Links added.
[2025-07-07 11:23] VITALS: BP 114/49; PULSE 55; RESP 17; TEMP 97.4
--- NOTE | 2025-07-08 10:36 | HP ---
DATE OF SERVICE: 07/06/2025 DATE OF ADMISSION: 07/06/2025 PRESENTING COMPLAINT: Postoperative care. HISTORY OF PRESENT ILLNESS: A 79-year-old male with history of hypertension, diabetes mellitus, dyslipidemia and coronary artery disease who has been admitted postoperative care after undergoing elective surgery. The patient has history of chronic back pain due to L4-L5 spondylosis with radiculopathy. The patient underwent a decompressive laminectomy today and has been admitted for postoperative wound care and pain management. No fever or chills. No fecal or urinary retention. No limb weakness. PAST MEDICAL HISTORY: 1. Diabetes mellitus. 2. Hypertension. 3. Dyslipidemia. 4. Coronary artery disease. 5. Obesity. 6. Chronic back pain. PAST SURGICAL HISTORY: 1. . 2. Cardiac catheterization. ALLERGIES: PENICILLIN. CURRENT MEDICATIONS: Reviewed. SOCIAL HISTORY: No alcohol, tobacco use or illicit drug use. FAMILY HISTORY: Positive for diabetes mellitus. REVIEW OF SYSTEMS: Greater than 10 systems were reviewed. Negative except as documented above. PHYSICAL EXAMINATION: GENERAL: Elderly male. Awake. Not in distress. VITAL SIGNS: Temperature 98.0, pulse 65, respiratory rate 20. EYES: No icterus. Pupils are equal and reactive. HEENT: No oral thrush seen. Moist oral mucosa. NECK: Supple. No JVD or thyromegaly. LUNGS: Good air entry. No rales. No rhonchi. CARDIOVASCULAR: S1 and S2 regular. No murmur or gallop. ABDOMEN: Obese, soft, nontender. Bowel sounds are present. CENTRAL NERVOUS SYSTEM: Awake, alert, and oriented x 3. No focal deficits. SKIN: No rashes. LYMPHATIC: No peripheral lymphadenopathy. MUSCULOSKELETAL: No joint swelling, erythema, or tenderness. BACK: No deformity. Intact surgical incision in the lumbar spine with sutures. No drainage was seen. ASSESSMENT: A 79-year-old male with lumbar spondylosis and radiculopathy who was admitted for elective surgery. CURRENT PROBLEMS: 1. Lumbar canal stenosis laminectomy. 2. Hypertension. 3. Diabetes mellitus. 4. Chronic back pain. 5. Obesity. 6. Dyslipidemia. 7. History of coronary artery disease. PLAN: 1. Admit the patient to medical floor. 2. Continue pain management as per Surgical team. 3. ADA diet. 4. Insulin sliding scale. 5. Lovenox for DVT prophylaxis. 6. PT evaluation. 7. Monitor electrolytes and correct as needed. The patient will be followed up closely. TID: [id number] RECEIPT: [id number]
--- NOTE | 2025-07-08 10:58 | DS ---
DATE OF DISCHARGE: 07/07/2025. DISCHARGE SUMMARY PRESENTING COMPLAINT: Postoperative care. HOSPITAL COURSE: A 79-year-old male with a history of obesity, hypertension, diabetes mellitus, coronary artery disease, and lumbar spine spondylosis who presented to the hospital for postoperative care. The patient underwent L4-L5 decompressive surgery. The patient was admitted for pain management and physical therapy. The patient has done well clinically, tolerated physical therapy. The patient's pain is well controlled and cleared for discharge by Neurosurgery. FINAL DISCHARGE DIAGNOSES: 1. Lumbar canal stenosis, status post surgery. 2. Lumbar radiculopathy. 3. Obesity. 4. Hypertension. 5. History of coronary artery disease. PLAN: 1. The patient will be discharged home. 2. Continue antihypertensive. 3. Continue antiplatelets. 4. Continue pain management. 5. Follow up with primary care physician. 6. Follow up with Neurosurgery in the clinic. TID: [id number] RECEIPT: [id number] ALEJANDRA
--- NOTE | 2025-07-08 11:37 | HMCIMG ---
Intraoperative fluoroscopic assessment of the lumbar spine INDICATION: For lumbar decompression at L4-L5 COMPARISON: None provided Fluoroscopy time: 0.9 minutes. FINDINGS: 3 images demonstrate interval of lumbar decompression at L4-L5 IMPRESSION: Details of the findings in the operative notes
== END 2025-07-07 16:15 | disposition home or self-care (01) ==
LOC: DAH 07:36 → DAHIP 07:37 → INTOOBSV 07:37 → DAH 07:37 → 4DH 14:15
PROVIDERS: ADMIT Neurological Surgery; ATTEND Neurological Surgery
DX: M47.816 Spondylosis without myelopathy or radiculopathy, lumbar region (principal); I10 Essential (primary) hypertension; E11.9 Type 2 diabetes mellitus without complications; E66.9 Obesity, unspecified; E78.5 Hyperlipidemia, unspecified; I25.10 Atherosclerotic heart disease of native coronary artery without angina pectoris; M48.061 Spinal stenosis, lumbar region without neurogenic claudication; Z68.30 Body mass index [BMI] 30.0-30.9, adult; Z98.890 Other specified postprocedural states; Z79.899 Other long term (current) drug therapy; Z86.2 Personal history of diseases of the blood and blood-forming organs and certain disorders involving the immune mechanism
CPT/HCPCS: 80048; 85025; 85610; 85730; 86850 ×2; 86900 ×2; 86901 ×2; 36415 ×2; 63047; 96376; 96365; 96375; 82948 ×6; 81003; 72020; 96366; G0378 ×28; A4510; A4663; A4649 ×4; J3373 ×2; J3010 ×2; J0690 ×3; J3490 ×6; J1171 ×2; J7030; J0665 ×2; J2250; J2704; J2405; J2710; J2371; J1010 ×2; J3260 ×2; C1762; A4215; A4223 ×2; A4213; A4222; A4221; A4216; A4600

== ENCOUNTER → 2025-08-19 | Outpatient (CLI) | payer OTHER ==
--- NOTE | 2025-08-22 06:23 | HMCIMG ---
CLINICAL INDICATION: Age-related osteoporosis without current pathological fracture COMPARISON: None available TECHNIQUE: Bone densitometry is performed of the lumbar spine and left hip. FINDINGS: Total BMD of lumbar spine is 1.385 g/cm2 with a T-score of 2.7 and Z-score is 3.8. Total BMD of left hip is 0.994 g/cm2 with a T-score of -0.5 and Z-score is 0.5. FRAX SCORE: The 10 year fracture risk for a major osteoporotic fracture and hip fracture 5% IMPRESSION: 1. Osteopenia left hip 2. Normal lumbar spine 3. I would recommend follow-up in 13 months World Health Organization criteria for BMD interpretation classify patients as Normal (T-score at or above -1.0), Osteopenic (T-score between -1.0 and -2.5), or Osteoporotic (T-score at or below -2.5). FRAX SCORE: A. All treatment decisions require clinical judgment and consideration of individual patient factors, including patient preferences, comorbidities, previous drug use, risk factors not captured in the FRAX model (e.g., frailty, falls, vitamin D deficiency, increased bone turnover, interval significant decline in bone density) and possible [id number]-bmgi-estimation of fracture risk by FRAX. B. In addition, the NOF Guide recommends that FDA-approved medical therapies be considered in postmenopausal women and men age greater than or equal to 50 years with a: i. Hip or vertebral (clinical or morphometric) fracture. ii. T-score of less than or equal to -2.5 at the spine or hip. iii. Ten-year fracture probability by FRAX of greater than or equal to 3% for hip fracture of greater than or equal to 20% for major osteoporotic fracture.
== END | disposition home or self-care (01) ==
LOC: RAH 09:23
PROVIDERS: ATTEND Internal Medicine
DX: M85.852 Other specified disorders of bone density and structure, left thigh (principal); M81.0 Age-related osteoporosis without current pathological fracture; E83.52 Hypercalcemia
CPT/HCPCS: 77080